=== PATIENT | male | born 1975 ===

== ENCOUNTER 2016-12-20 08:31 | Observation (INO) | payer OTHER ==
[~2016-12-20] VITALS: Ht 180.3 cm; Wt 75.6 kg
[2016-12-20] MEDS ORDERED: KETOROLAC 30 MG/ML (TORADOL) 1 ML VIAL IV ONE (09:05)
[2016-12-20] MEDS ORDERED: SODIUM CHLORIDE FLUSH 3 ML SYR IV PRN (09:05)
[2016-12-20] MEDS ORDERED: SODIUM CHLORIDE FLUSH 10 ML SYR IV PRN (09:05)
[2016-12-20 09:12] LABS: BILIRUBIN,URINE Negative (Negative); CLARITY,URINE Clear; GLUCOSE, URINE (UA) Negative (Negative); LEUKOCYTE ESTERASE ,URINE Negative (Negative); PH,URINE 6.5 (5.0 - 8.0); UROBILINOGEN,URINE 0.2 mg/dL (0.2-1.0)
[2016-12-20 09:16] LABS: ALBUMIN 4.6 g/dL (3.4-5.0); BASOPHILS % (AUTO) 1 % (0-2); CALCULATED IONIZED CALCIUM 3.8 mg/dL (3.8-4.6); EOSINOPHILS % (AUTO) 0 % (0-4); LYMPHOCYTES # (AUTO) 2.3 X10^3; MEAN CORPUSCULAR HEMOGLOBIN 30.3 PG (26.0-34.0); MEAN CORPUSCULAR HGB CONC 34.5 g/dL (31.0-37.0); MEAN CORPUSCULAR VOLUME 88 FL (80-100); MEAN PLATELET VOLUME 11.2 FL (6.0-9.5); MONOCYTES # (AUTO) 1.7 X10^3; MONOCYTES % (AUTO) 9 % (3-11); NEUTROPHILS # (AUTO) 14.6 X10^3; NEUTROPHILS % (AUTO) 78 % (51-67); PLATELET COUNT 247 10^3uL (150-450); TOTAL PROTEIN 8.2 g/dL (6.4-8.5); WHITE BLOOD COUNT 18.68 10^3uL (4.0-11.0)
[2016-12-20 09:23] LABS: COLOR,URINE Dark Yellow; RBC,URINE 20-50 /HPF; URINE CENTRIFUGED VOLUME 12 mL
[2016-12-20] MEDS ORDERED: HYDROmorphone 1 MG/ML (DILAUDID) SYRINGE IV ONE ×2 (09:45→11:25)
[2016-12-20] MEDS ORDERED: ONDANSETRON 2 MG/ML (Z0FRAN) 2 ML VIAL IV ONE (09:45)
[2016-12-20] MEDS ORDERED: PIPERACILLIN/TAZOBACTAM 3.375 GM in SODIUM CHLORIDE 50 ML IV ONE (11:35)
[2016-12-20] MEDS ORDERED: NS IV 500 ML 500 ML IV SCH (11:35)
[2016-12-20] MEDS ORDERED: morphine INJ 4 MG/ML 1 ML SYRINGE IV PRN (11:55)
[2016-12-20] MEDS: 1/2 NS W/KCL 20 MEQ/L 1,000 ML IV SCH ×2 (12:36→21:11)
[2016-12-20] MEDS: ONDANSETRON 2 MG/ML (Z0FRAN) 2 ML VIAL IV PRN ×2 (12:37→21:11)
[2016-12-20 12:52] VITALS: BP 118/68
[2016-12-20 12:53] VITALS: BP 118/68
[2016-12-20] MEDS ORDERED: METOCLOPRAMIDE 10 MG/2 ML (REGLAN) VIAL IV PRN (15:30)
[2016-12-20] MEDS ORDERED: KETOROLAC 30 MG/ML (TORADOL) 1 ML VIAL IV PRN (16:25)
[2016-12-20] MEDS ORDERED: ACETAMINOPHEN 325 MG TAB (TYLENOL) PO PRN (16:25)
[2016-12-20 16:34] VITALS: BP 119/69
[2016-12-20 19:27] VITALS: BP 109/69
[2016-12-20] MEDS: PIPERACILLIN/TAZOBACTAM 3.375 GM in SODIUM CHLORIDE 100 ML IV SCH (20:38)
[2016-12-20 23:57] VITALS: BP 109/65
[2016-12-21 04:02] VITALS: BP 116/74
[2016-12-21] MEDS: PIPERACILLIN/TAZOBACTAM 3.375 GM in SODIUM CHLORIDE 100 ML IV SCH (05:10)
[2016-12-21 06:11] LABS: BASOPHILS % (AUTO) 1 % (0-2); EOSINOPHILS # (AUTO) 0.1 10^3uL; EOSINOPHILS % (AUTO) 1 % (0-4); LYMPHOCYTES # (AUTO) 1.5 X10^3; MEAN CORPUSCULAR HEMOGLOBIN 30.2 PG (26.0-34.0); MEAN CORPUSCULAR HGB CONC 34.2 g/dL (31.0-37.0); MEAN CORPUSCULAR VOLUME 88 FL (80-100); MEAN PLATELET VOLUME 11.6 FL (6.0-9.5); MONOCYTES # (AUTO) 0.9 X10^3; MONOCYTES % (AUTO) 10 % (3-11); NEUTROPHILS # (AUTO) 6.9 X10^3; NEUTROPHILS % (AUTO) 73 % (51-67); PLATELET COUNT 203 10^3uL (150-450); WHITE BLOOD COUNT 9.51 10^3uL (4.0-11.0)
[2016-12-21 06:47] LABS: ANION GAP 13.3 MEQ/L (3-15)
[2016-12-21 07:51] VITALS: BP 116/67
[2016-12-21] MEDS: 1/2 NS W/KCL 20 MEQ/L 1,000 ML IV SCH (08:07)
[2016-12-21] MEDS ORDERED: ENOXAPARIN 40 MG/0.4 ML (LOVENOX) SYR SC SCH (09:00)
[2016-12-21] MEDS ORDERED: AMOXICILLIN/CLAVULANATE 875MG-125MG (AUGMENTIN) TABLET PO SCH (11:10)
[2016-12-21 11:25] VITALS: BP 123/74
== END 2016-12-21 13:15 | disposition home or self-care (01) ==
LOC: ED 08:34 → MED/SURG 12:14 → INTOOBSV 12:14
PROVIDERS: ADMIT Surgery; ATTEND Surgery
DX: K57.32 Diverticulitis of large intestine without perforation or abscess without bleeding (principal); F17.210 Nicotine dependence, cigarettes, uncomplicated
CPT/HCPCS: 36415; 74022; 74177; 80048; 80053; 81003; 81015; 83690; 85025; 99218; 99283; J1170; J1885; J2405; J2543; J2765; J7030; J7050; Q9967; 96361; 96365; 96366; 96367; 96375; 96376; 99284